=== PATIENT | female | born 1970 | race American Indian/Alaskan Native ===

== ENCOUNTER 2020-08-14 14:19 | Outpatient (CLI) | payer OTHER ==
--- NOTE | 2020-08-14 16:49 | Magnetic Resonance Report ---
MRI GUIDED CORE NEEDLE BIOPSY RIGHT BREAST WITH CLIP PLACEMENT X 2 INDICATION: Abnormal enhancement noted in the right breast with extension towards the nipple. FINDINGS: Note: An area of enhancement in the deep right retroareolar breast was noted with stippled enhancemen t extending towards nipple on 07/10/2020 MRI. For the purposes of labeling, the deep retroareolar valencia st masslike area is labeled as central. The stippled enhancement extending towards the nipple is labe led as subareolar. Informed consent was obtained. The patient was positioned within MRI scanner. A grid was placed along the lateral aspect of the righ t breast. A preprocedural scan was obtained and confirmed the right breast was in appropriate positio n. A total of 17 mL of Clariscan intravenous contrast agent was administered. Additional images were obtained and the focal areas of enhancement within the right central breast as well as more anteriorl y in the subareolar breast were identified. Utilizing the computer targeting software, the positions within the breast were calculated. The overlying skin was cleansed with Betadine and local anesthesia was obtained with with a 1% lidocaine solution. The obturators were placed at the appropriate positi on. A subsequent scan confirmed appropriate location. A total of 8 core samples were obtained at the central position. A total of 8 core samples were obtai rayna at the subareolar location. A postprocedural scan documented mild postbiopsy changes at the biops y sites. The biopsy markers were placed. Patient tolerated the procedure well and no immediate complication was identified. IMPRESSION: Technically successful MRI guided biopsy in the right breast at the central position with placement o f a biopsy marker. Technically successful MRI guided biopsy in the right breast at the subareolar location with placemen t of a biopsy marker. An addendum will be added to this report once pathology results are available. Signer Name: Kraig Nava MD Signed: 08/14/2020 4:45 PM Workstation Name: [id number]
--- NOTE | 2020-08-14 16:59 | Mammography Report ---
RIGHT DIAGNOSTIC MAMMOGRAM INDICATION: Status post MRI biopsies in the right breast x2. COMPARISON: 07/10/2020. FINDINGS: Right breast CC and LM projection mammograms were obtained. These document biopsy markers l ocated within the right slightly inferior and lateral central breast at the sites of two recent MRI g uided biopsies. A mammographic correlate was never identified. IMPRESSION: Right breast mammograms documenting location of biopsy marker status post MRI guided biopsy of two si amy within the right breast (labeled as a central and subareolar). BI-RADS Category 4: Suspicious for Malignancy. Signer Name: Kraig Nava MD Signed: 08/14/2020 4:55 PM Workstation Name: [id number]
== END 2020-08-14 14:20 | disposition home or self-care (01) ==
LOC: SPVIMAG 14:19
PROVIDERS: ATTEND Surgery
DX: N63.41 Unspecified lump in right breast, subareolar (principal); N60.81 Other benign mammary dysplasias of right breast; E78.00 Pure hypercholesterolemia, unspecified; I10 Essential (primary) hypertension; E11.9 Type 2 diabetes mellitus without complications; Z88.5 Allergy status to narcotic agent; Z79.899 Other long term (current) drug therapy; Z79.84 Long term (current) use of oral hypoglycemic drugs; Z98.890 Other specified postprocedural states
CPT/HCPCS: 19085; 19086; 77065; 88305; A4648; A9575

== ENCOUNTER 2020-09-26 08:52 | Day surgery (SDC) | payer OTHER ==
[2020-09-18 16:14] LABS: Basophils % (Auto) 0.9 % (0.0-1.8); Eosinophils # (Auto) 0.1 K/mm3 (0.0-0.4); Eosinophils % (Auto) 2.5 % (0.0-4.3); Hematocrit 43.2 % (30.3-42.9); Hemoglobin 13.7 gm/dl (10.1-14.3); Lymphocytes % (Auto) 40.4 % (13.4-35.0); Mean Corpuscular HGB Conc 32 % (30-34); Mean Corpuscular Volume 95 fl (79-97); Monocytes # (Auto) 0.3 K/mm3 (0.0-0.8); Monocytes % (Auto) 5.4 % (0.0-7.3); Platelet Count 268 K/mm3 (140-440); Red Blood Count 4.57 M/mm3 (3.65-5.03); Red Cell Distribution Width 14.5 % (13.2-15.2)
[2020-09-18 16:22] LABS: BUN/Creatinine Ratio 13; Blood Urea Nitrogen 14 mg/dL (7-17); Calcium 9.3 mg/dL (8.4-10.2); Hemolysis Index 49
[~2020-09-26 08:52] MED LIST: ceFAZolin/Water 2 GM/20 ML 2 GM/20 ML SYRINGE IV NR
[2020-09-26] MEDS ORDERED: LIDOCAINE (1%) 10 MG/1 ML VIAL 20 ML MDV ONE (10:03)
[2020-09-26] MEDS ORDERED: LACTATED RINGERS 1,000 ML IV SCH (10:30)
[2020-09-26] MEDS ORDERED: ONDANSETRON 4 MG/2 ML INJ IV PRN (11:24)
[2020-09-26] MEDS ORDERED: HYDROmorphone 1 MG/1 ML INJ IV PRN ×2 (11:24)
[2020-09-26] MEDS ORDERED: fentaNYL 100 MCG/2 ML INJ IV ONE (11:24)
[2020-09-26] MEDS ORDERED: MAGNESIUM OXIDE 400 MG TAB PO ONE ×2 (11:24→11:32)
--- NOTE | 2020-09-26 11:26 | Anesthesia Day of Surgery ---
Anesthesia Day of Surgery - Day of Surgery Patient Examined: Yes Patient H&P Reviewed: Yes Patient is NPO: Yes
--- NOTE | 2020-09-26 11:27 | Anesthesia Consultation ---
Anesthesia Consult and Med Hx Date of service: 09/26/20 - Airway Anesthetic Teeth Evaluation: Chipped ROM Head & Neck: Adequate Mental/Hyoid Distance: Adequate Mallampati Class: Class II Intubation Access Assessment: Good - Pre-Operative Health Status ASA Pre-Surgery Classification: ASA2 Proposed Anesthetic Plan: General Nerve Block: ES - Pulmonary Hx Smoking: No Hx Respiratory Symptoms: No (+2FS) Hx Sleep Apnea: No (SHERICE PRE SCREEN LOW RISK) - Cardiovascular System Hx Hypertension: Yes Hx Coronary Artery Disease: No (Had ETT four years ago) - Central Nervous System Hx Psychiatric Problems: Yes (Panic attacks in the past) - Gastrointestinal Hx Gastroesophageal Reflux Disease: No - Endocrine Hx Renal Disease: Yes (Watching kidneys) Hx Non-Insulin Dependent Diabetes: Yes Hx Thyroid Disease: No - Hematic Hx Sickle Cell Disease: No - Other Systems Hx Alcohol Use: Yes (Occas) Hx Cancer: Yes Hx Obesity: Yes
[2020-09-26] MEDS ORDERED: dexAMETHasone 4 MG/ML VIAL ONE (11:33)
[2020-09-26] MEDS ORDERED: BUPIVACAINE-EPINEPHRINE/PF 0.25%-1:200,000 (30 ML) VIAL INFILTRATI ONE (11:33)
[2020-09-26] MEDS: MIDAZOLAM 2 MG/2 ML INJ IV NR ×2 (11:42→11:45)
[2020-09-26] MEDS ORDERED: ACETAMINOPHEN 500 MG TAB PO ONE (12:00)
[2020-09-26] MEDS ORDERED: CELECOXIB 200 MG CAP PO NR (12:00)
--- NOTE | 2020-09-26 12:09 | Mammography Report ---
MAMMOGRAPHIC GUIDED LEFT BREAST NEEDLE LOCALIZATION, 09/26/2020 MAMMOGRAPHIC GUIDED NEEDLE LOBE EA ADD, LEFT CLINICAL INFORMATION / INDICATION: 2 left breast lesions. COMPARISON: 07/31/2020 PROCEDURE: Risks, benefits and indications to the procedure were discussed with the patient. The patient agreed to proceed with both verbal and written consent. A timeout procedure was performed with 2 patient david ntifiers. The breast was prepped with betadine in the usual sterile fashion. Approximately 5 cc of Lidocaine 1% was used for local anesthesia. Under direct digital mammographic guidance, 2 localization wires were placed targeting 2 separate clips in the subareolar region with satisfactory position with the dista l tip transversing the targeted lesion. Post-biopsy mammogram confirms satisfactory positioning of th e localization wires. The wires were secured to the skin with a sterile dressing. The patient tolerated procedure without difficulty. No complications were encountered. IMPRESSION: Satisfactory mammographic guided wire localization of 2 separate subareolar lesions in the left breas t. Signer Name: Demarcus Velarde Jr, MD Signed: 09/26/2020 12:04 PM Workstation Name: [id number]
--- NOTE | 2020-09-26 12:12 | Mammography Report ---
MAMMOGRAPHIC GUIDED RIGHT BREAST NEEDLE LOCALIZATION, 09/26/2020 MAMMOGRAPHIC GUIDED RIGHT BREAST NEEDLE LOCALIZATION EA ADD CLINICAL INFORMATION / INDICATION: 2 right breast masses. COMPARISON: 08/14/2020 PROCEDURE: Risks, benefits and indications to the procedure were discussed with the patient. The patient agreed to proceed with both verbal and written consent. A timeout procedure was performed with 2 patient david ntifiers. The breast was prepped with betadine in the usual sterile fashion. Approximately 5 cc of Lidocaine 1% was used for local anesthesia. Under direct digital mammographic guidance, 2 localization wires were placed targeting a surgical clip in the subareolar region and more posteriorly in the central breast near 8:00 position from the lateral approach. The localization wires were placed in satisfactory pos ition with the distal tips transversing the targeted lesions. Post-biopsy mammogram confirms satisfac tory positioning of the localization wires. The wire was secured to the skin with a sterile dressing. The patient tolerated procedure without difficulty. No complications were encountered. IMPRESSION: Satisfactory mammographic guided wire localization of 2 right breast lesions as described. Signer Name: Demarcus Velarde Jr, MD Signed: 09/26/2020 12:08 PM Workstation Name: [id number]
[2020-09-26] MEDS ORDERED: propofoL 200 MG/20 ML VIAL IV ONE (12:51)
[2020-09-26] MEDS ORDERED: HYDROmorphone 1 MG/1 ML INJ ONE (12:51)
[2020-09-26] MEDS ORDERED: LIDOCAINE MPF (2%) 20 MG/1 ML VIAL 5 ML ONE (12:51)
[2020-09-26] MEDS ORDERED: WATER FOR IRRIG STERILE 1,500 ML BOTTLE IR ONE (13:53)
--- NOTE | 2020-09-26 15:44 | Mammography Report ---
LEFT BREAST SPECIMEN RADIOGRAPH, 09/26/2020 INDICATION: Left breast target lesion: . COMPARISON: Needle localization films performed earlier today FINDINGS: The previously localized target lesions in the subareolar region of the left breast are present in it s entirety in the submitted specimen. 2 localization wires are present. IMPRESSION: 1. Radiographic evidence of satisfactory excision of the target lesions.. Signer Name: Demarcus Velarde Jr, MD Signed: 09/26/2020 3:39 PM Workstation Name: [id number]
--- NOTE | 2020-09-26 15:45 | Mammography Report ---
RIGHT BREAST SPECIMEN RADIOGRAPH, 09/26/2020 INDICATION: Right breast target lesion: . COMPARISON: Needle localization films performed earlier today FINDINGS: The previously localized target lesion in the subareolar region is present in its entirety in the sub mitted specimen. The localization wire is present. IMPRESSION: 1. Radiographic evidence of satisfactory excision of the target lesion. Signer Name: Demarcus Velarde Jr, MD Signed: 09/26/2020 3:40 PM Workstation Name: [id number]
[2020-09-26] MEDS ORDERED: LACTATED RINGERS 1,000 ML ONE (16:35)
[2020-09-26] MEDS ORDERED: ONDANSETRON 4 MG/2 ML INJ ONE (16:53)
--- NOTE | 2020-09-26 17:02 | Short Stay Summary ---
Short Stay Documentation Date of service: 09/26/20 - History H&P: obtained from office - Allergies and Medications Current Medications: Allergies codeine Allergy (Severe, Verified 09/17/20 19:10) ITCHING AND PSYCHOTIC EPISODES lactase [From [employer]] Allergy (Verified 09/17/20 19:10) Vomiting/diarrhea Home Medications Medication Instructions Recorded Confirmed Last Taken Type Cetirizine HCl [Zyrtec] 10 mg PO DAILY PRN 02/15/14 09/17/20 09/25/20 History Lovastatin 20 mg PO DAILY 02/15/14 09/17/20 09/25/20 History Metformin HCl 500 mg PO DAILY PRN 02/15/14 09/17/20 09/25/20 History Multivitamin [Multi-Vitamin Daily] 1 tab PO DAILY 02/15/14 09/17/20 09/25/20 History Triamterene/Hydrochlorothiazid 0.5 tab PO DAILY 02/15/14 09/17/20 09/25/20 History [Triamterene-Hctz 37.5-25 mg] Dapagliflozin Propanediol (Nf) 1 tab PO DAILY 09/17/20 09/17/20 09/25/20 History [Farxiga (Nf)] Exenatide Microspheres [Bydureon 2 mg SQ QWEEK 09/17/20 09/17/20 09/25/20 History Bcise] lisinopriL [Lisinopril] 10 mg PO DAILY PRN 09/17/20 09/17/20 09/25/20 History Ibuprofen [Motrin 800 MG tab] 800 mg PO Q8HR PRN #12 tablet 09/26/20 Unknown Rx Active Medications Celecoxib (Celecoxib 200 Mg Cap) 400 mg PO PREOP NR Stop: 09/26/20 23:59 Last Admin: 09/26/20 11:41 Dose: 400 mg Documented by: Hydromorphone HCl (Hydromorphone 1 Mg/1 Ml Inj) 0.25 mg IV Q10MIN PRN PRN Reason: Pain, Moderate (4-6) Stop: 09/26/20 23:59 Hydromorphone HCl (Hydromorphone 1 Mg/1 Ml Inj) 0.5 mg IV Q10MIN PRN PRN Reason: Pain , Severe (7-10) Stop: 09/26/20 23:59 Cefazolin Sodium (Ancef/Sterile Water 2 Gm/20 Ml) 2 gm in 20 mls @ 80 mls/hr IV PREOP NR; Protocol Stop: 09/26/20 23:59 Lactated Ringer's (Lactated Ringers) 1,000 mls @ 100 mls/hr IV DIRECT SIVA Last Admin: 09/26/20 11:05 Dose: 100 mls/hr Documented by: Midazolam HCl (Midazolam 2 Mg/2 Ml Inj) 2 mg IV PREOP NR Stop: 09/26/20 23:59 Last Admin: 09/26/20 11:45 Dose: 2 mg Documented by: Ondansetron HCl (Ondansetron 4 Mg/2 Ml Inj) 4 mg IV ONCE PRN PRN Reason: Nausea And Vomiting Stop: 09/26/20 23:59 - Brief post op/procedure progress note Date of procedure: 09/26/20 Pre-op diagnosis: Bilateral breast masses Post-op diagnosis: same Procedure: Bilateral breast masses needle localization excisional biopsy Anesthesia: GETA Findings: Bilateral wires present and clips present as well Surgeon: BRAD CRANE Estimated blood loss: other (25-50cc) Pathology: list Specimen disposition: to lab Condition: stable - Disposition Condition at discharge: Good Disposition: DC-01 TO HOME OR SELFCARE Short Stay Discharge Plan Activity: other (no heavy lifting) Diet: regular Wound: keep clean and dry (wear breast binder; may shower in 48 hours; no baths, pools or lakes; apply bacitracin twice daily) Follow up with: BRAD CRANE MD [Staff Physician] - 7 Days Prescriptions: Ibuprofen [Motrin 800 MG tab] 800 mg PO Q8HR PRN #12 tablet PRN Reason: Pain , Severe (7-10)
--- NOTE | 2020-09-26 17:03 | Operative Report ---
Operative Report Operative Report: Operative Report: September 26, 2020 Preoperative diagnosis: Left breast masses of the upper outer quadrant x2 and right upper outer and right lower outer/central quadrant breast masses Postoperative diagnosis: Same Procedure:Bilateral complex breast masses needle localization excisional biopsy Surgeon: Marsha Herrera MD Machine Grainer: Dane Harvey MD Anesthesia: General Findings: Bilateral breast masses excised with clips and wires present Complications: None EBL: 25 cc Disposition: PACU in good condition Indications for operative procedure: This is a 49 year old lady with history of abnormal bilateral breast MRI/ultrasound. Recent bilateral breast biopsies performed with left breast papilloma and discordant pathology and right breast papillomas with recommendations for excisional biopsy to rule out malignancy. Left breast with discordant pathology and radiologist recommendation for excisonal biopsy given discordant pathology. She wished to proceed with the above procedure and understood additional procedures may be indicated pending final pathology. Procedure in detail: The patient was taken to radiology for wire placement for localization of both intraductal papilloms of the right breast upper outer and lower outer quadrant and left breast mass and papilloma of the upper outer quadrant. Anestheis placed bilateral pectoral block. Patient was then taken to the operating room. Gen. anesthesia was administered. Bilateral breast and axilla were prepped and draped in the normal sterile operative fashion. The wires were identified. Timeout was performed. Attention was then taken towards the left breast first. Wires were located of the upper outer quadrant and retroareolar. A periareolar breast incision around 2:00 position was made with a 15 blade knife and dissection taken down to subcutaneous tissues. Attention taken towards the left retroareolar lesion; first began raising of the superior flap with removal of the wire from the skin with dissection taken past the area of concern and then taken down posteriorly, followed by raising of the inferior flap, medial flap and lateral flap with all flaps taken past the area of concern and then posteriorly past the wire. The breast area of concern was appropriately removed posteriorly with the aid of the Bovie cautery. The wire was not encountered. Specimen was marked and then sent to pathology and radiology; radiograph specimen with wire and clip present. Attention was then taken towards the lesion at the 1:00 position upper outer quadrant. Through the same periareolar incision, began raising of the superior flap with removal of the wire from the skin with dissection taken past the area of concern and then taken down posteriorly, followed by raising of the inferior flap, medial flap and lateral flap with all flaps taken past the area of concern and then posteriorly past the wire. The breast area of concern was appropriately removed posteriorly with the aid of the Bovie cautery. The wire was not encountered. Specimen was marked and then sent to pathology and radiology; radiograph specimen with wire and clip present. Breast cavity was irrigated and hemostasis was obtained. The posterior deep breast tissues were approximated and closed using interrupted 3-0 Vicryl. The subcutaneous tissues were then approximated and closed using interrupted 3-0 Vicryl followed by closing of the skin with a running 4-0 Monocryl and skin affix. Attention was then taken towards the right breast first. Wires were located of the upper outer quadrant and lower outer/central quadrant. A periareolar breast incision around 9:00 position was made with a 15 blade knife and dissection taken down to subcutaneous tissues. Attention taken towards the right upper outer quadrant lesion; first began raising of the superior flap with removal of the wire from the skin with dissection taken past the area of concern and then taken down posteriorly, followed by raising of the inferior flap, medial flap and lateral flap with all flaps taken past the area of concern and then posteriorly past the wire. The breast area of concern was appropriately removed posteriorly with the aid of the Bovie cautery. The wire was not encountered. Specimen was marked and then sent to pathology and radiology; radiograph specimen with wire and clip present. Attention was then taken towards the lesion of the lower outer/central quadrant. Through the same periareolar incision, began raising of the superior flap with removal of the wire from the skin with dissection taken past the area of concern and then taken down posteriorly, followed by raising of the inferior flap, medial flap and lateral flap with all flaps taken past the area of concern and then posteriorly past the wire. The breast area of concern was appropriately removed posteriorly with the aid of the Bovie cautery. The wire was not encountered but anterior tissue of the wire was noted to be close to the wire. Ultrasound was used to exam the specimen and with uncertainity clip was not seen. Specimen was marked and then sent to pathology and radiology; radiograph specimen with wire and no clip present. Then proceeded with taking additional anterior tissue and specimen was then sent to radiology with clip present and then specimen was sent to pathology. Breast cavity was irrigated and hemostasis was obtained. The posterior deep breast tissues were approximated and closed using interrupted 3-0 Vicryl. The subcutaneous tissues were then approximated and closed using interrupted 3-0 Vicryl followed by closing of the skin with a running 4-0 Monocryl and skin affix. The patient tolerated surgery very well and she was awaken from anesthesia without any complication and transported to PACU in good condition.
[2020-09-26 19:24] VITALS: BP 106/56
--- NOTE | 2020-09-26 20:22 | Post Anesthesia Evaluation ---
- Post Anesthesia Evaluation Patient Participated: Yes Airway Patent: Yes Stable Respiratory Function: Yes Nausea/Vomiting: No Temp > 96.8F: Yes Pain Manageable: Yes Adequeate Hydration: Yes Anesthesia Complications: No Block Receding Appropriately: Yes Patient on Ventilator: No
--- NOTE | 2020-09-27 12:19 | Mammography Report ---
RIGHT BREAST SPECIMEN RADIOGRAPH, 09/26/2020 INDICATION: Right breast target lesion: . COMPARISON: Needle localization performed earlier today FINDINGS: The initial specimen contains the localization wire, soft tissue and a few calcifications but the cli p placed under ultrasound is not clearly demonstrated. These findings were discussed with Dr. Yajaira hauser. It was thought that the specimen may have been obtained slightly posterior to the clip. A recomme ndation was made to excise further tissue along the anterior margin of the specimen. A second specime n is presented at 1604 hours with the clip present in the specimen. IMPRESSION: 1. Radiographic evidence of satisfactory excision of the right breast target lesion. Signer Name: Demarcus Velarde Jr, MD Signed: 09/27/2020 12:15 PM Workstation Name: [id number]
== END 2020-09-26 19:00 | disposition home or self-care (01) ==
LOC: OR 08:52
PROVIDERS: ATTEND Surgery
DX: N63.21 Unspecified lump in the left breast, upper outer quadrant (principal); N63.11 Unspecified lump in the right breast, upper outer quadrant; N63.13 Unspecified lump in the right breast, lower outer quadrant; Z20.822 Contact with and (suspected) exposure to COVID-19; D24.2 Benign neoplasm of left breast; R92.0 Mammographic microcalcification found on diagnostic imaging of breast; I10 Essential (primary) hypertension; E66.9 Obesity, unspecified; E11.9 Type 2 diabetes mellitus without complications; Z72.89 Other problems related to lifestyle; Z88.5 Allergy status to narcotic agent; Z88.8 Allergy status to other drugs, medicaments and biological substances; Z79.899 Other long term (current) drug therapy; Z79.84 Long term (current) use of oral hypoglycemic drugs; Z90.49 Acquired absence of other specified parts of digestive tract; Z98.890 Other specified postprocedural states; Z68.36 Body mass index [BMI] 36.0-36.9, adult
CPT/HCPCS: 19125; 19126; 19281; 19282; 36415; 64450; 76098; 80048; 82962; 84703; 85025; 88307; A4648; J0690; J1100; J1170; J2250; J2405; J2704; J3010; J7120; U0003